=== PATIENT | female | born 1985 | race Caucasian/White ===

== ENCOUNTER 2016-11-27 16:51 | Emergency (ER) | payer OTHER ==
[~2016-11-27 16:51] MED LIST: ALBUTEROL17 GM; ALBUTEROL17 GM INH; ALPRAZOLAM PO; ATARAX PO; CELEXA; CELEXA10 M1; CELEXA10 MG PO; CLARITIN10 M1; DAKIN'S MODIF1000 ML; GABAPENTIN300 M2 PO; IBUPROFEN PO; IBUPROFEN800 MG PO; LORTAB 10-5001 EACH PO; LORTAB 7.5-5001 TAB PO; MACROBID100 MG PO; MOBIC PO; MOBIC15 MG DOB; NEURONTIN PO; PERCOCET 5/321 UDTAB PO; PREDNISONE PO; PRILOSEC PO; TEGRETOL PO; TYLENOL #3 PO; VIBRAMYCIN100 M1 PO; ZANAFLEX; ZANAFLEX PO; ZANAFLEX2 M1 PO; ZANTAC25 MG/ML INJ; ZESTRIL10 M1 PO; ZITHROMAX PO
== END 2016-11-27 18:05 | disposition home or self-care (01) ==
LOC: CED 16:51
DX: G44.229 Chronic tension-type headache, not intractable (principal); F17.200 Nicotine dependence, unspecified, uncomplicated; Z88.0 Allergy status to penicillin; Z88.1 Allergy status to other antibiotic agents; Z88.2 Allergy status to sulfonamides
CPT/HCPCS: 99282; J1200; J1885; J2765